=== PATIENT | male | born 1945 | race Caucasian/White ===

== ENCOUNTER 2017-04-18 06:08 | Day surgery (SDC) | payer MEDICARE, OTHER ==
[2017-04-17 14:14] LABS: HEMATOCRIT 45.6 % (42.0-54.0); HEMOGLOBIN 15.3 g/dL (13.5-17.5); MCH 31.7 pg (26.0-34.0); MCHC 33.6 g/dL (31.0-37.0); MCV 94.6 fL (80.0-100.0); MEAN PLATELET VOLUME 9.9 fL (7.4-10.4); RBC 4.82 10x6/uL (4.20-6.10); RDW 12.3 % (11.5-14.5); WBC 10.1 10x3/uL (4.8-10.8)
[~2017-04-18] VITALS: Ht 177.8 cm; Wt 93.0 kg
--- NOTE | ~2017-04-18 | OP ---
PATIENT NAME: NATHAN WILL MEDICAL RECORD: [id number] :45 LOCATION:D.[facility] ADMISSION DATE: SURGEON: SCOTTY DODD MD DATE OF OPERATION: 04/18/2017 CHIEF COMPLAINT: Right trigger thumb. PREOPERATIVE DIAGNOSIS: Right trigger thumb. POSTOPERATIVE DIAGNOSIS: Right trigger thumb. PROCEDURE: Right trigger thumb release. SURGEON: Scotty Dodd MD. ANESTHESIA: General. INTRAOPERATIVE COMPLICATIONS: None. SUMMARY OF PATHOLOGY AND FINDINGS: The patient did indeed have a course triggering thumb consistent with preoperative diagnosis. OPERATIVE SUMMARY IN DETAIL: After obtaining the appropriate preoperative orthopedic surgery consent as well as anesthetic consultation, evaluation and clearance, the patient was brought to the operating room and placed on the operating table in supine position. After adequate general laryngeal mask was administered, tourniquet was placed about the proximal aspect of the right upper extremity. Right upper extremity was prepped and draped in routine sterile fashion. The arm was elevated, exsanguinated and tourniquet was inflated to 350 mmHg. A small incision was made over the right thumb A1 chino. Dissection was carried down. Care was taken to avoid the nerve. The A1 chino in its entirety was released. Wound was copiously irrigated and closed, locally infiltrated with 0.25% Marcaine plain. Sterile dressings were applied. The patient was awakened, taken to recovery room in stable condition. All final needle and sponge counts were correct. TRANSINT:[id number] Voice Confirmation ID: [id number] DOCUMENT ID: [id number] SCOTTY DODD MD CC: [id number] DICTATION DATE: 04/24/17 0459 CLERK MANAGER: 04/24/17 1359 [facility] 04/18/17 [place] [id number]
[~2017-04-18 06:08] MED LIST: ASPIRIN EC81 M1 PO; CHOLESTYRAMIN4 G/PK1 PO; CO Q-1030 MG PO; HYDROCODONE-APA1 TAB PO; MULTI-DAY VITAM1 TAB PO; PRILOSEC20 MG PO; ZYLOPRIM100 MG PO
[2017-04-18 07:05] VITALS: BP 135/77; Ht 177.8 cm; Wt 93.0 kg
[2017-04-18] MEDS ORDERED: HYDROCODONE-APA1 TAB PO (09:27)
--- NOTE | 2017-04-18 15:54 | NUR ---
1030 IV DC WITH CATHER TIP INTACT
== END 2017-04-18 11:15 | disposition home or self-care (01) ==
LOC: D.OPS 06:08 → D.PAN 07:30 → D.OPS 11:15 → D.PAN 12:00 → D.OPS 12:00
PROVIDERS: Anesthesiology
DX: M65.311 Trigger thumb, right thumb (principal); Z01.812 Encounter for preprocedural laboratory examination

== ENCOUNTER → 2017-05-16 10:00 | Outpatient (CLI) | payer MEDICARE, OTHER ==
[2017-04-18 07:05] VITALS: BMI 29.4
== END | disposition home or self-care (01) ==
LOC: D.CT 10:00
DX: R10.84 Generalized abdominal pain (principal)

== ENCOUNTER 2018-02-11 09:30 | Day surgery (SDC) | payer MEDICARE, OTHER ==
[~2018-02-11] VITALS: Ht 177.8 cm; Wt 95.3 kg
--- NOTE | ~2018-02-11 | OP ---
PATIENT NAME: NATHAN WILL MEDICAL RECORD: [id number] :45 LOCATION:[facility] ADMISSION DATE: SURGEON: SCOTTY DODD MD DATE OF OPERATION: 02/11/2018 PREOPERATIVE DIAGNOSIS: Trigger finger, right hand ring finger. POSTOPERATIVE DIAGNOSIS: Trigger finger, right hand ring finger. PROCEDURE: Trigger finger release, right hand ring finger. ANESTHESIA: General. INTRAOPERATIVE COMPLICATIONS: None. SUMMARY OF PATHOLOGIC FINDINGS: The patient had very tight A1 chino consistent with preoperative diagnosis and underneath had some excoriation, but no tearing. OPERATIVE SUMMARY IN DETAIL: After obtaining the appropriate preoperative orthopedic surgery consent as well as anesthetic consultation, evaluation, and clearance, the patient was brought to the operating room and placed on the operating table in supine position. After general laryngeal mask was administered, tourniquet was placed about the right upper extremity. Right upper extremity was then elevated and exsanguinated, tourniquet was inflated to 250 mmHg. An incision was made in the distal palmar crease. Very careful dissection was taken down to the A1 chino, which was incised in its entirety. It was hypertrophic and thickened and the tendon underneath had some excoriated changes. It was in overall good condition. Completing this, the wound was irrigated and closed with 2-0 Prolene in mattress fashion. The area was locally infiltrated with 0.25% Marcaine plain. Sterile dressings were applied. Tourniquet was deflated. The patient was awakened, taken to recovery room in stable condition. All final needle and sponge counts were correct. TRANSINT:[id number] Voice Confirmation ID: [id number] DOCUMENT ID: [id number] SCOTTY DODD MD at 0953 CC: [id number] DICTATION DATE: 02/11/18 1358 [employer] TEACHER: 02/11/18 1424 [facility] 02/11/18 [place] [id number]
[~2018-02-11 09:30] MED LIST changes: +MOBIC7.5 MG PO; +NORVASC5 MG PO
[2018-02-11 10:56] VITALS: BP 143/86; Ht 177.8 cm; Wt 95.3 kg
[2018-02-11 11:04] LABS: BASOPHILS 0.1 % (0-2); EOSINOPHILS 1.8 % (0-7); HEMATOCRIT 40.9 % (42.0-54.0); HEMOGLOBIN 13.8 g/dL (13.5-17.5); IMMATURE GRANULOCYTES 0.2 % (0-5); LYMPHOCYTES 26.5 % (15-50); MCH 32.7 pg (26.0-34.0); MCHC 33.7 g/dL (31.0-37.0); MCV 96.9 fL (80.0-100.0); MEAN PLATELET VOLUME 10.5 fL (7.4-10.4); MONOCYTES 12.6 % (2-11); NEUTROPHILS 58.8 % (40-80); PLATELET COUNT 181 10x3/uL (130-400); RBC 4.22 10x6/uL (4.20-6.10); RDW 13.1 % (11.5-14.5); WBC 8.9 10x3/uL (4.8-10.8)
[2018-02-11 11:14] LABS: ANION GAP 13.7 mmol/L (8-16); CALCIUM 8.9 mg/dL (8.5-10.1); CARBON DIOXIDE 24.8 mmol/L (21.0-32.0); CREATININE - SERUM 1.1 mg/dL (0.6-1.3); POTASSIUM - SERUM 3.5 mmol/L (3.5-5.1)
[2018-02-11] MEDS ORDERED: HYDROCODON-ACE1 EAC7 PO (14:00)
== END 2018-02-11 15:50 | disposition home or self-care (01) ==
LOC: D.OPS 09:30 → D.PAN 12:00 → D.OPS 13:15
PROVIDERS: Anesthesiology
DX: M65.341 Trigger finger, right ring finger (principal); J44.9 Chronic obstructive pulmonary disease, unspecified; K21.9 Gastro-esophageal reflux disease without esophagitis; Z01.812 Encounter for preprocedural laboratory examination

== ENCOUNTER 2018-07-05 08:46 | Emergency (ER) | payer MEDICARE, OTHER ==
[~2018-07-05] VITALS: Ht 177.8 cm; Wt 95.5 kg
[~2018-07-05 08:46] MED LIST changes: +HYDROCODON-ACE1 EAC7 PO
[2018-07-05 08:53] VITALS: BP 132/77; Ht 177.8 cm; Wt 95.5 kg
[2018-07-05] MEDS ORDERED: HYDROCODON-ACE1 EAC7 PO (11:29)
== END 2018-07-05 12:16 | disposition home or self-care (01) ==
LOC: D.ER 08:46
DX: M77.51 Other enthesopathy of right foot and ankle (principal); Z86.73 Personal history of transient ischemic attack (TIA), and cerebral infarction without residual deficits

== ENCOUNTER → 2018-12-14 15:40 | Outpatient (CLI) | payer MEDICARE, OTHER ==
[2018-07-05 08:53] VITALS: BMI 30.1
== END | disposition home or self-care (01) ==
LOC: D.CT 15:40
DX: J32.9 Chronic sinusitis, unspecified (principal)

== ENCOUNTER 2019-03-10 06:30 | Day surgery (SDC) | payer MEDICARE, OTHER ==
[2019-03-08 14:09] LABS: BASOPHILS 0.2 % (0-2); EOSINOPHILS 2.3 % (0-7); HEMATOCRIT 42.5 % (42.0-54.0); HEMOGLOBIN 15.1 g/dL (13.5-17.5); IMMATURE GRANULOCYTES 0.4 % (0-5); LYMPHOCYTES 29.6 % (15-50); MCH 33.4 pg (26.0-34.0); MCHC 35.5 g/dL (31.0-37.0); MEAN PLATELET VOLUME 10.3 fL (7.4-10.4); MONOCYTES 9.3 % (2-11); NEUTROPHILS 58.2 % (40-80); PLATELET COUNT 210 10x3/uL (130-400); RBC 4.52 10x6/uL (4.20-6.10); RDW 12.8 % (11.5-14.5); WBC 10.4 10x3/uL (4.8-10.8)
[2019-03-08 14:24] LABS: ANION GAP 14.8 mmol/L (8-16); CALCIUM 8.4 mg/dL (8.5-10.1); CARBON DIOXIDE 26.5 mmol/L (21.0-32.0); CREATININE - SERUM 1.4 mg/dL (0.6-1.3); POTASSIUM - SERUM 4.3 mmol/L (3.5-5.1)
[~2019-03-10] VITALS: Ht 177.8 cm; Wt 90.7 kg
[~2019-03-10 06:30] MED LIST changes: +ALLER-CHLOR4 MG PO; +PREVALITE POWD231 GM PO
[2019-03-10 09:51] VITALS: BP 116/77; Ht 177.8 cm; Wt 90.7 kg
--- NOTE | 2019-03-10 13:52 | NUR ---
PT VOIDED IN BATHROOM IV REMOVED INSTRUCTIONS GIVEN
== END 2019-03-10 13:53 | disposition home or self-care (01) ==
LOC: D.OPS 06:30 → D.PAN 08:30 → D.OPS 10:30
PROVIDERS: ATTEND Orthopaedic Surgery
DX: G56.02 Carpal tunnel syndrome, left upper limb (principal); Z01.812 Encounter for preprocedural laboratory examination